=== PATIENT | male | born 1965 | race Caucasian/White ===

== ENCOUNTER 2024-08-16 08:35 | Day surgery (SDC) | payer OTHER ==
[2024-08-16] MEDS: Lactated Ringers 1,000 ML IV SCH (08:49)
[2024-08-16] MEDS ORDERED: Propofol 200 MG/20 ML SDV ONE (09:26)
[2024-08-16] MEDS ORDERED: fentaNYL 100 MCG/2 ML SDV ONE (09:26)
== END 2024-08-16 12:01 | disposition home or self-care (01) ==
LOC: VM.SDS 08:35
PROVIDERS: ATTEND Surgery
DX: Z12.11 Encounter for screening for malignant neoplasm of colon (principal); R19.5 Other fecal abnormalities; K57.30 Diverticulosis of large intestine without perforation or abscess without bleeding; E66.9 Obesity, unspecified; Z68.32 Body mass index [BMI] 32.0-32.9, adult; Z79.899 Other long term (current) drug therapy
CPT/HCPCS: 00811; J2704; J3010; J7120